=== PATIENT | female | born 1980 | race Caucasian/White ===

== ENCOUNTER → 2021-03-08 | Outpatient (CLI) | payer OTHER ==
[~2021-03-08] MED LIST: ALAVERT10 M1 PO; IBU600 MG PO; PEPCID 20MG TAB20 MG PO; PERCOCET 325 MG1 TA2 PO; PRENATAL1 TA7 PO; PROCARDIA XL 3030 MG PO
== END ==
LOC: MC.RAD 10:09
DX: Z12.31 Encounter for screening mammogram for malignant neoplasm of breast (principal)